=== PATIENT | female | born 1960 | race American Indian/Alaskan Native ===

== ENCOUNTER 2017-08-18 00:20 | Emergency (ER) | payer SELFPAY ==
[2017-08-18 01:02] VITALS: BP 123/68
--- NOTE | 2017-08-18 05:07 | Emergency Department Report ---
HPI - General Chief Complaint: Neck Pain/Injury Time Seen by Provider: 08/18/17 04:38 - HPI HPI: Patient here complaining of neck pain 3 weeks now radiated to her right shoulder and also right shoulder pain that's worsening throughout the day. She said that she is unable to fully move her right shoulder due to pain. Patient thinks it's from picking up her 25 pounds grand baby. Patient's only 44 kg. She reports pain is radiating down her right arm. Denies any numbness or tingling. She reports that strength and there right hand and arm is weaker comparing to left hand and arm. Denies any fall in or trauma to the area. Pain is 8 out of 10 achy and dull. She says she's been taking [id number] pain medicine with little relief. ED Past Medical Hx - Past Medical History Previous Medical History?: No - Surgical History Past Surgical History?: Yes Additional Surgical History: tonselectomy, tubal ligation - Family History Family history: no significant - Social History Smoking Status: Never Smoker Substance Use Type: None - Medications Home Medications: Home Medications Medication Instructions Recorded Confirmed Last Taken Type Acetaminophen/Codeine [Tylenol 1 tab PO Q6H PRN #20 tab 08/18/17 Unknown Rx /Codeine # 3 tab] Ibuprofen [Motrin] 400 mg PO Q8H PRN #15 tablet 08/18/17 Unknown Rx Ranitidine HCl [Zantac 150 MG TAB] 150 mg PO BID #30 tablet 08/18/17 Unknown Rx ED Review of Systems ROS: Stated complaint: NECK PAIN Other details as noted in HPI Comment: All other systems reviewed and negative Constitutional: no symptoms reported ENT: denies: ear pain, congestion Respiratory: no symptoms reported Cardiovascular: denies: chest pain, palpitations, dyspnea on exertion, orthopnea , edema, syncope, paroxysmal nocturnal dyspnea Gastrointestinal: denies: abdominal pain, constipation Genitourinary: denies: dysuria, hematuria Musculoskeletal: arthralgia (right shoulder and neck pain.). denies: back pain , joint swelling, myalgia Skin: denies: rash Neurological: denies: headache, weakness, numbness, paresthesias, confusion Physical Exam - Physical Exam Vital Signs: Vital Signs 08/18/17 00:59 Temperature 98 F Pulse Rate 89 Respiratory 18 Rate Blood Pressure 123/68 O2 Sat by Pulse 97 Oximetry General: This is a 57-year-old female well-nourished well-developed in no acute distress and nontoxic in appearance Physical Exam: Head: Normocephalic, atraumatic, no abrasion, no bruising and no contusion. Eyes: Biateral pupils equal and reactive to light, bilateral EOM intact.. Bilateral conjunctival and sclera without injection, normal accommodation. No nystagmus Mouth: Moist, no pharyngeal exudate or erythema. No peritonsillar abscesses. Uvula is midline and oral airways patent. Ears: Bilateral TMs pearly galvez .Bilateral EAC without any redness swelling or drainage. No mastoid bone tenderness Nose: Bilateral nasal mucosa normal. Maxillary and frontal sinuses non-tender to palpate. Neck: Supple, no Cervical adenopathy, full range of motion and positive C-spine tenderness. No swelling or tracheal deviation normal reflexes. Nexus criteria requires diagnostics exam due to C-spine tenderness Cardiovascular: S1, S2. Regular rate and rhythm. No murmur. Capillary refill is less then 3 seconds. Lungs: Clear to auscultate bilaterally. No rhonchi, wheezes or rales. No chest wall tenderness. No chest contusion. No bruising to chest. MSK: Strength 5/5 in all extremities except for right upper extremity were right hand lens generator is weaker than left hand lens generator. Patient unable to raise her right arm over her head due to pain and stiffness. No joint deformity or crepitus. Normal inspection. Positive bony tenderness to proximal humerus, right without any ecchymosis or swelling.. No laceration, abrasion or ecchymotic area noted. Abdomen: Non-tender to palpate in all quadrants, no guarding or rebound tenderness, positive bowel sounds in all quadrants. No CVA tenderness. No hernia, bruit or mass. No rigidity or distention. Extremities: No clubbing, cyanosis or edema. +2 pulses. No neurovascular compromise. She has good color, sensation, temperature to extremities. Limitation in movement to right upper extremity otherwise normal extremities. Skin: Clean, dry and intact. No rash or lesions. Neurological: GCS at 15, Pt is alert and oriented 3 speech is clear period. Bilateral hand fish header left stronger than right.. Normal gait. Negative Romberg and no pronator drift. Normal Reflexes. No motor or sensory deficit Back: No vertebral tenderness, no paraspinal tenderness. . Ambulates without any difficulties. Psych: Normal mood and behavior ED Course Vital Signs 08/18/17 00:59 Temperature 98 F Pulse Rate 89 Respiratory 18 Rate Blood Pressure 123/68 O2 Sat by Pulse 97 Oximetry - Reevaluation(s) Reevaluation #1: 08/18/17 06:49 Patient received [place] 5/325 2 tablets in the emergency room for shoulder pain and neck pain. - Orthopedic Splinting/Casting Injury #1 Side: right Upper Extremity Injury Location: shoulder Upper Extremity Immobilizer: sling/shoulder immobilize Additional Comments: Neurovascular check status post splinted is intact. ED Medical Decision Making - Radiology Data Radiology results: report reviewed X-ray of C-spine revealed no evidence of fracture or malalignment. Severe degenerative arthritic changes extending from C3 to 4 level and through C6 to C7 level. X-ray of right shoulder reveal patient with nutrient canal versus incomplete cortical fracture at the level of greater tuberosity of the humeral head. Patient with tenderness to palpate in this area. - Medical Decision Making ED course: Patient here for right shoulder pain and limitation in movement and neck pain. She said this is been going on for the last 3 weeks. Patient is frail and with very small body frame with BMI of 19. She thinks she injured herself 3 weeks ago which she picked up her grandchild who weighs 25 pounds. Complain of pain radiating from her neck down her right shoulder and arm and also pain that is located to her right shoulder. Physical findings for tenderness to palpate to right proximal humerus and limitation in movement to right shoulder. She does have C-spine tenderness and nexus criteria requires diagnostic studies. X-ray of C-spine reveals no fracture or malalignment the patient had these severe degenerative arthritic changes extending from the C through C4 level and through the C6 to C7 level. X-ray of right shoulder revealed new tearing canal versus incomplete cortical fracture at the level of the greater tuberosity of the humeral head. Patient is tender to palpate in this area with limitation of movement. Her shoulder joint without any acute findings except for before meals joint with arthrosis. Surrounding soft tissue is normal. I discussed the patient x-ray findings and I also spoke to Dr. Benitez was the orthopedic doctor. He requested the patient the next 1-2 days and that she should call the office later this morning and schedule an appointment. He also reports that patient may have a small fracture to the greater tuberosity of her right shoulder and needs to be placed in a shoulder immobilizer and sent home on pain medications. I discussed this with patient in details and she is in agreement. Patient has shoulder immobilizer placed please see procedure note for detail and given prescription for Motrin and Tylenol No. 3 and to rest the affected area until further instructions from orthopedic doctor. Discharged from ED with her family member. Critical care attestation.: If time is entered above; I have spent that time in minutes in the direct care of this critically ill patient, excluding procedure time. ED Disposition Clinical Impression: Acute neck pain, Degenerative disc disease, cervical, Cervical radiculopathy Fracture of greater tuberosity of right humerus Qualifiers: Encounter type: initial encounter Fracture type: closed Fracture alignment: nondisplaced Qualified Code(s): S42.254A - Nondisplaced fracture of greater tuberosity of right humerus, initial encounter for closed fracture Shoulder pain, right Qualifiers: Chronicity: acute Qualified Code(s): M25.511 - Pain in right shoulder Disposition: DC-01 TO HOME OR SELFCARE Is pt being admited?: No Does the pt Need Aspirin: No Condition: Stable Instructions: Arm Fracture in Adults (ED), Musculoskeletal Pain (ED), Osteoarthritis (ED), Cervical Radiculopathy (ED), Degenerative Disc Disease (ED) , Splint Care (ED), RICE Therapy (ED) Additional Instructions: Please follow up with primary care as recommended Increase fluid intake Take medication as prescribed . please do not drive or operate heavy machinery while taking Tylenol No. 3 as this medication causes drowsiness Referred to discharge instruction on splint care. Referred to discharge instruction in Rice therapy. Follow-up with orthopedic doctor as instructed. Prescriptions: Acetaminophen/Codeine [Tylenol /Codeine # 3 tab] 1 tab PO Q6H PRN #20 tab PRN Reason: Pain, Moderate (4-6) Ibuprofen [Motrin] 400 mg PO Q8H PRN #15 tablet PRN Reason: Pain Ranitidine HCl [Zantac 150 MG TAB] 150 mg PO BID #30 tablet Referrals: ANTHONY BENITEZ MD [Staff Physician] - 08/19/17 Forms: Accompanied Note, Work/School Release Form(ED)
[2017-08-18] MEDS ORDERED: NORCO 5/325 PO ONE (05:08)
--- NOTE | 2017-08-18 06:04 | XRay Report ---
FINAL REPORT EXAM: XR SHOULDER 2+V RT HISTORY: rt shoulder pain TECHNIQUE: Three views of the right shoulder were obtained. FINDINGS: There is a linear radiolucency just inferior to greater tuberosity of the humeral head. With this represents an incomplete fracture versus a nutrient canal is uncertain. The glenohumeral joint appears normal. There is mild AC joint arthrosis. The subacromial space appears normal. The surrounding soft tissues appear intact. IMPRESSION: Nutrient canal versus incomplete cortical fracture at the level the greater tuberosity of the humeral head. Correlation with the clinical exam needed.
--- NOTE | 2017-08-18 06:05 | XRay Report ---
FINAL REPORT EXAM: XR SPINE CERVICAL 2-3V HISTORY: cspine pain with radiculopathy TECHNIQUE: Four views of the cervical spine were obtained. FINDINGS: There is severe narrowing of the C3-C4, C4-C5, C5-C6 and C6-C7 discs with anterior osteophytes at all levels. The alignment appears normal. The prevertebral soft tissues and C1-C2 articulation appear intact. IMPRESSION: Severe degenerative arthritic changes extending from the C3-C4 level through the C6-C7 level. No evidence of fracture or malalignment.
== END 2017-08-18 07:18 | disposition home or self-care (01) ==
LOC: ED 00:20
DX: S42.254A Nondisplaced fracture of greater tuberosity of right humerus, initial encounter for closed fracture (principal); M50.10 Cervical disc disorder with radiculopathy, unspecified cervical region; Z90.89 Acquired absence of other organs; Z98.51 Tubal ligation status; X58.XXXA Exposure to other specified factors, initial encounter; Y93.89 Activity, other specified; Y92.89 Other specified places as the place of occurrence of the external cause; Y99.8 Other external cause status
CPT/HCPCS: 72040; 99283